=== PATIENT | female | born 1990 | race Caucasian/White ===

== ENCOUNTER → 2017-12-05 | Outpatient (CLI) | payer OTHER | LOC: FIMAGING 14:45 | PROVIDERS: ATTEND Hospitalist | DX: M79.661 Pain in right lower leg (principal); M79.662 Pain in left lower leg; M79.89 Other specified soft tissue disorders ==

== ENCOUNTER 2018-02-02 19:56 | Inpatient (IN) | payer OTHER ==
[2018-02-02] MEDS ORDERED: MISOPROSTOL 200 MCG TAB PO PRN (21:51)
[2018-02-02] MEDS ORDERED: OLIVE OIL 118 ML BTL MISC PRN (21:51)
[2018-02-02] MEDS ORDERED: LIDOCAINE 1% 300 MG/30 ML SDV SC PRN (21:51)
[2018-02-02] MEDS ORDERED: TERBUTALINE SULFATE 1 MG/ML VIAL IV PRN (21:51)
[2018-02-02] MEDS ORDERED: EPSOM SALT 454 GM TP PRN (21:51)
[2018-02-02] MEDS ORDERED: IBUPROFEN 600 MG TAB PO PRN (21:51)
[2018-02-02] MEDS ORDERED: AMMONIA AROMATIC 1 EACH AMP IH PRN (21:51)
[2018-02-02] MEDS ORDERED: OXYTOCIN/RINGERS LACTATE 1,000 ML IV PRN (21:51)
--- NOTE | 2018-02-02 22:39 | PDGENHP ---
History and Physical - Chief Complaint early labor - History of Present Illness 27 at 40w1d, here with contractions and "done being ". Has had ctxns for the past 3-4 days, not getting much sleep. Ctxns are intermittent, sometimes q 5 min, now q 15min on arrival. No LOF though lost mucus plug 2 d ago. No VB. Good FM. No ssx PIH except for edema which has actually improved over the past couple days. care at [facility], course c/b: hypothyroidism, hx genital HSV- on Valtrex for past 2 weeks, Rubella non- Immune. labs significant for: Rubella NON immune GBS neg Innatal neg Std panel neg A pos Ob hx: 01/2017 - ectopic txed with 2 doses MTX History Information - Allergies/Home Medication List Allergies/Adverse Reactions: No Known Allergies Allergy (Unverified 02/02/18 21:50) I have personally reviewed and updated: family history, medical history, social history, surgical history Past Medical History: genital HSV. asthma as a teen. 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 MGF- lung ca. M - DM1 , depression. F - EToH abuse. MAunt & MUnc - Parkinsons - Social History Smoking Status: Never smoked Alcohol Use: None Drug Use: None Review of Systems Review of Systems: ROS: 10pt was reviewed & negative except for what was stated in HPI & below Physical Exam Physical Exam: FHR - 130 reactive, Cat 1, mod variability, no decels toco - q 3-15 min 36.7 82 133/71 Constitutional: no apparent distress, appears nourished Eyes: PERRL, anicteric sclera, EOMI Ears, Nose, Mouth, Throat: moist mucous membranes, hearing normal, ears appear normal Cardiovascular: regular rate and rhythym, no murmur, rub, or gallop Respiratory: no respiratory distress, no rales or rhonchi, clear to auscultation Gastrointestinal: soft, non-tender abdomen (fundus firm and c/w term , NT when not miky) Genitourinary: no bladder fullness Skin: warm, normal color Musculoskeletal: full muscle strength Neurologic: AAOx3 Psychiatric: interacting appropriately Assessment & Plan Assessment: 27 at 40w1d with prodromal labor / rubella NON immune. Options discussed: go home and await spontaneous labor or stay and be induced. B/R/A of both options discussed. Pt and given time to discuss - mutually agreed to stay and induce. Discussed length of induction could be 3 hours to 3 days. Will proceed with Transcervical balloon catheter and pitocin, after confirming cephalic presentation with US. Sweetie Marcum MD, FACOG [facility]
[2018-02-02 23:02] LABS: PLATELET COUNT 221 10^3/uL (150-400)
[2018-02-02] MEDS ORDERED: LR 500 ML IV PRN (23:35)
--- NOTE | 2018-02-02 23:43 | OBPROG ---
Labor Progress Note Assessment/Plan: Assessment: 27 at 40w1d undergoing elective induction / maternal misery / lives far away from hospital Waqar transcervical balloon catheter in place - 60 ml uterine / 40 ml Vaginal placed Cephalic ANTHONY/ROT confirmed with US. Plan: Will start pitocin induction. B/R/A of IOL discussed again - pt wishes to proceed. Sweetie Marcum MD, FACOG [facility] 02/02/18 23:38 Subjective/Intrapartum Course: Pt ready to proceed with IOL. Feeling intermittent ctxns. 02/02/18 23:42 Objective: 02/02/18 22:42 SVE 1 / 50 / -3 Procedure - with sterile gloves - was able to digitally place Cook catheter through cervix and uterine balloon filled with 60 ml LR and vaginal balloon with 40 ml LR. Pt jani well. - SVE Dilation (cm): 1 Effacement (%): 50 Station: -3 Membranes: Intact - Contraction Pattern Assessment Current Contraction Pattern: Irregular - FHR Assessment Carlos FHR (bpm): 140 FHR Pattern Variability: Moderate FHR Category: 1 - Procedures Non-surgical Procedures: Other (Specify) (transcervical balloon catheter placement) - AP Antepartum Course: Uncomplicated course. Desires elective induction - started at 40 w1d after 3 d of prodromal labor. 02/02/18 23:45 Oxytocin Orders Assessment - Pre-Induction/Augmentation Assessment Gestational Age: 40 week(s) and 1 day(s) ICD10 Worksheet Patient Problems: Problems Problem Status Onset Encounter for elective induction of labor Acute Hypothyroidism Acute - ICD10 Problem Qualifiers (1) Encounter for elective induction of labor (2) Hypothyroidism Qualifiers: Hypothyroidism type: due to Iggy's thyroiditis Qualified Code(s): E03.8 - Other specified hypothyroidism; E06.3 - Autoimmune thyroiditis; E06.3 - Autoimmune thyroiditis; E06.3 - Autoimmune thyroiditis
[2018-02-02] MEDS ORDERED: OXYTOCIN/RINGERS LACTATE 500 ML IV SCH (23:45)
[2018-02-03] MEDS ORDERED: hydrOXYzine HCL 50 MG TAB PO ONE (01:00)
[2018-02-03] MEDS: LR 1,000 ML IV PRN ×2 (01:09→05:17)
--- NOTE | 2018-02-03 04:35 | OBPROG ---
Labor Progress Note Assessment/Plan: Assessment: 27 at 40w1d undergoing elective induction / maternal misery / lives far away from hospital Cook transcervical balloon catheter in place - 60 ml uterine / 40 ml Vaginal placed Cephalic ANTHONY/ROT confirmed with US. Plan: Will start pitocin induction. B/R/A of IOL discussed again - pt wishes to proceed. Sweetie Marcum MD, FACOG [facility] 02/02/18 23:38 A/P: 27 - undergoing IOL - Transcervical balloon in place even with tension - unable to palpate. Requests epidural -will have placed by Dr. Tiwari, Anesthesiology. Pt declined nitrous and IV narcotics. Rekha Marcum MD 02/03/18 04:31 Subjective/Intrapartum Course: Pt ready to proceed with IOL. Feeling intermittent ctxns. 02/02/18 23:42 Pt feeling sharp pain in lower abdomen, very frequently, feels like she doesn't get a break. Declines nitrous and IV narcotics, desires epidural. 02/03/18 04:34 Objective: 02/02/18 22:42 Patient ABO/Rh A POSITIVE 02/02/18 22:42 36.6 66 18 126/61 Gen - pleasant, mod distress with each contraction breathing through contractions. Unable to remove balloon catheter with tension, and unable to assess cervix around balloon catheter - SVE Membranes: Intact - Contraction Pattern Assessment Current Contraction Pattern: Regular, Irregular - FHR Assessment Carlos FHR (bpm): 130 FHR Pattern Variability: Moderate FHR Category: 1 - Procedures Non-surgical Procedures: Other (Specify) (transcervical balloon catheter placement) - AP Antepartum Course: Uncomplicated course. Desires elective induction - started at 40 w1d after 3 d of prodromal labor. 02/02/18 23:45 Oxytocin Orders Assessment - Pre-Induction/Augmentation Assessment Gestational Age: 40 week(s) and 1 day(s) ICD10 Worksheet Patient Problems: Problems Problem Status Onset Encounter for elective induction of labor Acute Hypothyroidism Acute - ICD10 Problem Qualifiers (1) Encounter for elective induction of labor (2) Hypothyroidism Qualifiers: Hypothyroidism type: due to Iggy's thyroiditis Qualified Code(s): E03.8 - Other specified hypothyroidism; E06.3 - Autoimmune thyroiditis; E06.3 - Autoimmune thyroiditis; E06.3 - Autoimmune thyroiditis
[2018-02-03] MEDS ORDERED: fentaNYL 100 MCG/2 ML INJ ONE (04:43)
[2018-02-03] MEDS ORDERED: BUPIVACAINE 0.25% 30 ML SDV ONE (04:44)
[2018-02-03] MEDS ORDERED: PHENYLEPHRINE HCL 100 MCG/ML SYR ONE (04:44)
[2018-02-03] MEDS ORDERED: fentaNYL 2MCG/ML/BUP 0.1% RTU 100 ML BAG EP ONE (04:44)
[2018-02-03] MEDS ORDERED: ONDANSETRON 4 MG/2 ML VIAL IVP PRN (05:22)
[2018-02-03] MEDS ORDERED: PHENYLEPHRINE HCL 100 MCG/ML SYR IVP PRN (05:22)
[2018-02-03] MEDS ORDERED: METOCLOPRAMIDE 10 MG/2 ML VIAL IVP PRN (05:22)
--- NOTE | 2018-02-03 05:24 | PREANESOB ---
Obstetric Pre-Anesthesia Info - General Info : 2 Para: 0 SHABNAM: 02/01/18 Gestational Age: 40 week(s) and 1 day(s) - Labor Status Cervical Dilation per last OB SVE: 1 Station per last OB SVE: -3 Anesthesia Allergies/Adverse Reactions: Allergy/AdvReac Type Severity Reaction Status Date / Time No Known Allergies Allergy Unverified 02/02/18 21:50 Home Medications: Medication Instructions Recorded Iron 325 mg PO DAILY 02/02/18 Levothyroxine 175 mcg PO DAILY 02/02/18 Dha 1 tab PO DAILY 02/02/18 Valtrex 500 mg PO DAILY 02/02/18 Visit Medications: Generic Name Dose Route Start Last Admin Trade Name Freq PRN Reason Stop Dose Admin Ammonia (Aromatic Spirit) 1 each 02/02/18 21:51 Ammonia Aromatic IH 02/12/18 21:50 ONCE PRN Fainting Lactated Ringer's 1,000 mls @ 0 mls/hr 02/02/18 21:51 02/03/18 05:17 Lr IV 02/03/18 21:50 1,000 mls PRN PRN Administration SEE PROTOCOL CONDITIONS Protocol Per Protocol Oxytocin/Lactated Ringer's 1,000 mls @ 150 mls/hr 02/02/18 21:51 Pitocin 20 Units/Lr (Premix) IV PRN PRN Post bleeding Lactated Ringer's 500 mls @ 500 mls/hr 02/02/18 23:35 Lr IV 02/03/18 23:35 PRN PRN Maternal Hypotension Oxytocin/Lactated Ringer's 500 mls @ 0 mls/hr 02/02/18 23:45 02/03/18 00:22 Pitocin 30 Units/Lr (Premix) IV 08/01/18 23:44 500 mls CONT VIVIANA Administration Protocol Per Protocol Ibuprofen 600 mg 02/02/18 21:51 Motrin PO ONCE PRN post , pain Levothyroxine Sodium 175 mcg 02/03/18 06:00 Synthroid PO 08/02/18 05:59 DAILY AT 6AM VIVIANA Lidocaine HCl 300 mg 02/02/18 21:51 Lidocaine Hcl 1% SC 08/01/18 21:50 ONCE PRN episiotomy Magnesium Sulfate 454 gm 02/02/18 21:51 Epsom Salt TP 08/01/18 21:50 Q1H PRN perineal discomfort Misoprostol 800 - 1,000 mcg 02/02/18 21:51 Cytotec PO 08/01/18 21:50 ONCE PRN Vaginal Atony/Bleeding Ward Oil 118 ml 02/02/18 21:51 Sweet Oil MISC 08/01/18 21:50 ONCE PRN perineal massage Terbutaline Sulfate 0.25 mg 02/02/18 21:51 Brethine IV 08/01/18 21:50 ONCE PRN Tachysystole Discontinued Medications Generic Name Dose Route Start Last Admin Trade Name Carolee PRN Reason Stop Dose Admin Bupivacaine HCl Confirm 02/03/18 04:44 Sensorcaine 0.25% Sdv Administered 02/03/18 04:45 Dose 30 ml .ROUTE .STK-MED ONE Fentanyl Confirm 02/03/18 04:43 Sublimaze Administered 02/03/18 04:44 Dose 100 mcg .ROUTE .STK-MED ONE Fentanyl/Bupivacaine HCl Confirm 02/03/18 04:44 Fentanyl/Bupivacaine/Ns 2 Mcg/Ml 0.1% (Premix Administered 02/03/18 04:45 Dose 100 ml EP .STK-MED ONE Hydroxyzine HCl 100 mg 02/03/18 01:00 02/03/18 01:09 Hydroxyzine Hcl PO 02/03/18 01:01 100 mg ONCE ONE Administration Phenylephrine HCl Confirm 02/03/18 04:44 Neosynephrine Administered 02/03/18 04:45 Dose 1,000 mcg .ROUTE .STK-MED ONE - Vital Signs Height/Weight (Nursing): Height 172.72 cm Weight 109.769 kg - Focused Exam Neck exam: decreased ROM Mallampati Score: Class 3 Mouth exam: normal dental/mouth exam Pulmonary: no respiratory distress Cardiovascular: regular rate and rhythym Labs: 02/02/18 22:42 Patient ABO/Rh A POSITIVE 02/02/18 22:42 - Plan Consent Signed and on Chart: Yes
[2018-02-03] MEDS ORDERED: fentaNYL 2MCG/ML/BUP 0.1% RTU 100 ML EP SCH (05:30)
[2018-02-03] MEDS ORDERED: LR 500 ML IV SCH (05:30)
[2018-02-03] MEDS ORDERED: AMMONIA AROMATIC 1 EACH AMP IH ONE (05:47)
[2018-02-03] MEDS ORDERED: OLIVE OIL 118 ML BTL ONE (05:47)
[2018-02-03] MEDS ORDERED: LIDOCAINE 1% 300 MG/30 ML SDV ONE (05:47)
[2018-02-03] MEDS ORDERED: MISOPROSTOL 200 MCG TAB ONE (05:48)
[2018-02-03] MEDS ORDERED: OXYTOCIN 10 UNIT/ML VIAL ONE ×2 (05:48→23:46)
--- NOTE | 2018-02-03 08:30 | OBPROG ---
Labor Progress Note Assessment/Plan: Assessment: IUP at 40w2d IOL - on pit, cook cath removed, and now AROM/mec, - rub NI HSV - no outbreaks GBS - Plan: will cont pit, mec noted, will place IUPC prn if no progress 02/03/18 08:22 02/03/18 08:31 Subjective/Intrapartum Course: Pt ready to proceed with IOL. Feeling intermittent ctxns. 02/02/18 23:42 Pt feeling sharp pain in lower abdomen, very frequently, feels like she doesn't get a break. Declines nitrous and IV narcotics, desires epidural. 02/03/18 04:34 02/03/18 08:30 Pt was resting after SAÚL, comf now. I rec removing cook and assessing cx and AROM - pt agreeable. informed pt of mec with AROM, cx Objective: 02/02/18 22:42 Patient ABO/Rh A POSITIVE 02/02/18 22:42 - SVE Dilation (cm): 5 Effacement (%): 80 Station: -2 Membranes: AROM, Intact Amniotic Fluid Color: Meconium Stained - Contraction Pattern Assessment Current Contraction Pattern: Regular, Irregular (q 2-4 min on 18 mu/min pit) - FHR Assessment Carlos FHR (bpm): 130 FHR Pattern Variability: Moderate FHR Category: 1 - Procedures Non-surgical Procedures: Amniotomy (with mec noted), Other (Specify) ( transcervical balloon catheter placement) - AP Antepartum Course: Uncomplicated course. Desires elective induction - started at 40 w1d after 3 d of prodromal labor. 02/02/18 23:45 Oxytocin Orders Assessment - Pre-Induction/Augmentation Assessment Gestational Age: 40 week(s) and 1 day(s) ICD10 Worksheet Patient Problems: Problems Problem Status Onset Encounter for elective induction of labor Acute Hypothyroidism Acute
--- NOTE | 2018-02-03 11:52 | OBPROG ---
Labor Progress Note Assessment/Plan: Assessment: IUP at 40w2d cx now , with lack of change - IUPC placed rub NI HSV - no outbreaks GBS - Plan: will cont pit, mec noted 02/03/18 08:22 02/03/18 08:31 02/03/18 11:48 Subjective/Intrapartum Course: Pt ready to proceed with IOL. Feeling intermittent ctxns. 02/02/18 23:42 Pt feeling sharp pain in lower abdomen, very frequently, feels like she doesn't get a break. Declines nitrous and IV narcotics, desires epidural. 02/03/18 04:34 02/03/18 08:30 Pt was resting after SAÚL, comf now. I rec removing cook and assessing cx and AROM - pt agreeable. informed pt of mec with AROM, cx -2 02/03/18 11:50 Pt doing ok - comf with SAÚL. knows cx hasn't changed - rec IUPC and pt agrees. placed without probs. pit on , initial ctxns adeq -- Objective: 02/02/18 22:42 Patient ABO/Rh A POSITIVE 02/02/18 22:42 - SVE Dilation (cm): 5 Effacement (%): 90 Station: -2 Membranes: AROM, Intact Amniotic Fluid Color: Meconium Stained - Contraction Pattern Assessment Current Contraction Pattern: Regular (q 2 min, initial ctxns with good intensity by IUPC), Irregular (q 2-4 min on 18 mu/min pit) - FHR Assessment Carlos FHR (bpm): 130 FHR Pattern Variability: Moderate FHR Category: 1 - Procedures Non-surgical Procedures: Amniotomy (with mec noted), Other (Specify) ( transcervical balloon catheter placement) - AP Antepartum Course: Uncomplicated course. Desires elective induction - started at 40 w1d after 3 d of prodromal labor. 02/02/18 23:45 Oxytocin Orders Assessment - Pre-Induction/Augmentation Assessment Gestational Age: 40 week(s) and 1 day(s) ICD10 Worksheet Patient Problems: Problems Problem Status Onset Encounter for elective induction of labor Acute Hypothyroidism Acute
[2018-02-03] MEDS: LEVOTHYROXINE 175 MCG TAB PO SCH (12:24)
--- NOTE | 2018-02-03 18:12 | OBPROG ---
Labor Progress Note Assessment/Plan: Assessment: IUP at 40w2d cx now /-1, variable adequacy with ctxns - for spurts very dysfuctional, then very adequate great pattern for 45 min rub NI HSV - no outbreaks GBS - Plan: will cont pit, cx cont to make change, mec 02/03/18 08:22 02/03/18 08:31 02/03/18 11:48 02/03/18 18:09 Subjective/Intrapartum Course: Pt ready to proceed with IOL. Feeling intermittent ctxns. 02/02/18 23:42 Pt feeling sharp pain in lower abdomen, very frequently, feels like she doesn't get a break. Declines nitrous and IV narcotics, desires epidural. 02/03/18 04:34 02/03/18 08:30 Pt was resting after SAÚL, comf now. I rec removing cook and assessing cx and AROM - pt agreeable. informed pt of mec with AROM, cx 80/-2 02/03/18 11:50 Pt doing ok - comf with SAÚL. knows cx hasn't changed - rec IUPC and pt agrees. placed without probs. pit on , initial ctxns adeq --90/-2 02/03/18 18:11 pt ok but having right sided pain - just pushed button, aware of pressure, disc variable ctxn adequacy. 100/-1 on pit Objective: 02/02/18 22:42 Patient ABO/Rh A POSITIVE 02/02/18 22:42 - SVE Dilation (cm): 8 Effacement (%): 100 Station: -1 Membranes: AROM, Intact Amniotic Fluid Color: Meconium Stained - Contraction Pattern Assessment Current Contraction Pattern: Regular (q 2 min, initial ctxns with good intensity by IUPC), Irregular (variable, most are adeq strength with MVUs 140- 270. ?coupling) - FHR Assessment Carlos FHR (bpm): 130 FHR Pattern Variability: Moderate FHR Category: 1 - Procedures Non-surgical Procedures: Amniotomy (with mec noted), Other (Specify) ( transcervical balloon catheter placement) - AP Antepartum Course: Uncomplicated course. Desires elective induction - started at 40 w1d after 3 d of prodromal labor. 02/02/18 23:45 Oxytocin Orders Assessment - Pre-Induction/Augmentation Assessment Gestational Age: 40 week(s) and 1 day(s) ICD10 Worksheet Patient Problems: Problems Problem Status Onset Encounter for elective induction of labor Acute Hypothyroidism Acute
[2018-02-03] MEDS ORDERED: ACETAMINOPHEN 500 MG TAB PO ONE (22:30)
--- NOTE | 2018-02-03 23:03 | OBPROG ---
Labor Progress Note Assessment/Plan: Assessment: IUP at 40w2d complete since about 8:30, ineffective pushing and labored down approx 1 hour rub NI HSV - no outbreaks GBS - Plan: cont pushing, mec 02/03/18 08:22 02/03/18 08:31 02/03/18 11:48 02/03/18 18:09 02/03/18 22:59 Subjective/Intrapartum Course: Pt ready to proceed with IOL. Feeling intermittent ctxns. 02/02/18 23:42 Pt feeling sharp pain in lower abdomen, very frequently, feels like she doesn't get a break. Declines nitrous and IV narcotics, desires epidural. 02/03/18 04:34 02/03/18 08:30 Pt was resting after SAÚL, comf now. I rec removing cook and assessing cx and AROM - pt agreeable. informed pt of mec with AROM, cx 5/80/-2 02/03/18 11:50 Pt doing ok - comf with SAÚL. knows cx hasn't changed - rec IUPC and pt agrees. placed without probs. pit on , initial ctxns adeq --5/90/-2 02/03/18 18:11 pt ok but having right sided pain - just pushed button, aware of pressure, disc variable ctxn adequacy. 8/100/-1 on pit 02/03/18 23:03 Has had possible OP position and seemed like baby rotated with change of rectal pressure. Has been pushing approx 11/2 hours, more effective recently. Objective: 02/02/18 22:42 Patient ABO/Rh A POSITIVE 02/02/18 22:42 - SVE Dilation (cm): 10 Effacement (%): 100 Station: +2 Membranes: AROM, Intact Amniotic Fluid Color: Meconium Stained Dilation Complete Date: 02/03/18 - Contraction Pattern Assessment Current Contraction Pattern: Regular (q 2 min, initial ctxns with good intensity by IUPC), Irregular (variable, most are adeq strength with MVUs 140- 270. ?coupling) - FHR Assessment Carlos FHR (bpm): 140 FHR Pattern Variability: Moderate FHR Category: 1 (spotty monitoring while pushing, but between still accels seen) - Procedures Non-surgical Procedures: Amniotomy (with mec noted), Other (Specify) ( transcervical balloon catheter placement) - AP Antepartum Course: Uncomplicated course. Desires elective induction - started at 40 w1d after 3 d of prodromal labor. 02/02/18 23:45 Oxytocin Orders Assessment - Pre-Induction/Augmentation Assessment Gestational Age: 40 week(s) and 1 day(s) ICD10 Worksheet Patient Problems: Problems Problem Status Onset Encounter for elective induction of labor Acute Hypothyroidism Acute
--- NOTE | 2018-02-04 00:27 | OBDEL ---
Info Type: Vaginal Presentation at Delivery: Vertex L&D Analgesia/Anesthesia Type: Epidural GBS+: No Intrapartum Medications: Generic Name Dose Route Start Last Admin Trade Name Frelata PRN Reason Stop Dose Admin Oxytocin/Lactated Ringer's 500 mls @ 0 mls/hr 02/02/18 23:45 02/03/18 00:22 Pitocin 30 Units/Lr (Premix) IV 08/01/18 23:44 500 mls CONT VIVIANA Administration Protocol Per Protocol Fentanyl/Bupivacaine HCl 100 mls @ 0 mls/hr 02/03/18 05:30 02/03/18 05:28 Fentanyl/Bupivacaine/Ns 2 Mcg/Ml 0.1% (Premix EP 02/13/18 05:29 100 mls CONT VIVIANA Administration Protocol As Directed Levothyroxine Sodium 175 mcg 02/03/18 06:00 02/03/18 12:24 Synthroid PO 08/02/18 05:59 175 mcg DAILY AT 6AM VIVIANA Administration Lidocaine HCl 300 mg 02/02/18 21:51 02/03/18 23:48 Lidocaine Hcl 1% SC 08/01/18 21:50 300 mg ONCE PRN Administration episiotomy Discontinued Medications Generic Name Dose Route Start Last Admin Trade Name Carolee PRN Reason Stop Dose Admin Acetaminophen 1,000 mg 02/03/18 22:30 02/03/18 22:36 Tylenol PO 02/03/18 22:31 1,000 mg ONCE ONE Administration Hydroxyzine HCl 100 mg 02/03/18 01:00 02/03/18 01:09 Hydroxyzine Hcl PO 02/03/18 01:01 100 mg ONCE ONE Administration Lactated Ringer's 1,000 mls @ 0 mls/hr 02/02/18 21:51 02/03/18 05:17 Lr IV 02/03/18 21:50 1,000 mls PRN PRN Administration SEE PROTOCOL CONDITIONS Protocol Per Protocol - Hospital Course Intrapartum: Pt ready to proceed with IOL. Feeling intermittent ctxns. 02/02/18 23:42 Pt feeling sharp pain in lower abdomen, very frequently, feels like she doesn't get a break. Declines nitrous and IV narcotics, desires epidural. 02/03/18 04:34 02/03/18 08:30 Pt was resting after SAÚL, comf now. I rec removing cook and assessing cx and AROM - pt agreeable. informed pt of mec with AROM, cx /-2 02/03/18 11:50 Pt doing ok - comf with SAÚL. knows cx hasn't changed - rec IUPC and pt agrees. placed without probs. pit on , initial ctxns adeq --/-2 02/03/18 18:11 pt ok but having right sided pain - just pushed button, aware of pressure, disc variable ctxn adequacy. 8100/-1 on pit 02/03/18 23:03 Has had possible OP position and seemed like baby rotated with change of rectal pressure. Has been pushing approx 11/2 hours, more effective recently. Vaginal Delivery - Delivery Provider Delivery Physician/CNM: Lupe Ward - Labor and Delivery Onset of Contractions Date: 02/03/18 Onset of Contractions Time: 12:00 Onset of Contractions Type: Induced Rupture of Membranes Date: 02/03/18 Rupture of Membranes Time: 08:16 Rupture of Membranes Type: Artificial Amniotic Fluid Color: Meconium Stained Dilation Complete Date: 02/03/18 Dilation Complete Time: 20:36 Placenta Delivery Date: 02/03/18 Placenta Delivery Time: 23:40 Total Hours of Labor: 11 Non-surgical Procedures: Amniotomy (with mec noted), Other (Specify) ( transcervical balloon catheter placement) Laceration: 2nd Degree, Other (Specify) (extended up posterior vag wall) Repair: 3-0, Vicryl Vaginal Sponge Count Correct: Yes Vaginal Needle Count Correct: Yes Vaginal Sweep Performed: Yes EBL: 450 Delivery Events: None - Medications Labor Augmentation/Induction Methods Used: Pitocin, Other (Specify) (cook catheter) Labor Augmentation/Induction Indication: Other (Specify) (prodromal labor) Data SHABNAM: 02/01/18 Gestational Age: 40 week(s) and 3 day(s) Carlos Delivery Date: 02/03/18 Delivery Time: 23:32 Sex of : Female (Ayleen) Score (1 Min): 8 Score (5 Min): 9 ICD10 Worksheet Patient Problems: Problems Problem Status Onset Encounter for elective induction of labor Acute Hypothyroidism Acute (spontaneous vaginal delivery) Acute - ICD10 Problem Qualifiers (1) (spontaneous vaginal delivery)
[2018-02-04] MEDS: ACETAMINOPHEN 325 MG TAB PO SCH ×4 (01:05→20:35)
[2018-02-04] MEDS: IBUPROFEN 600 MG TAB PO SCH ×3 (06:43→20:35)
[2018-02-04] MEDS: LEVOTHYROXINE 175 MCG TAB PO SCH (06:44)
[2018-02-04] MEDS ORDERED: HYDROCORTISONE 0.5% CREAM TP PRN (11:19)
[2018-02-04] MEDS ORDERED: MEASLES,MUMPS&RUBELLA VACC/PF 0.5 ML VIAL SC ONE (12:27)
--- NOTE | 2018-02-04 12:27 | OBPP ---
Progress Note Assessment/Plan: Assessment: PPD1 s/p . Hct 32 - Iron supps. Colace BID. Likely home tomorrow. A pos Rubella NON immune - needs MMR (ordered today) Hypothyroid - Cont levo 175mcg JM Subjective/ Course: 02/04/18 12:25 Doing well - They all got a few hours of good sleep last night. Worried about some issues w baby's O2 sat and temp fluctuations. BF going well. Pain controlled. Objective: 02/04/18 05:50 Patient ABO/Rh A POSITIVE 02/02/18 22:42 Temp Pulse Resp BP Pulse Ox 36.3 C 70 18 108/67 96 02/04/18 09:45 02/04/18 09:45 02/04/18 09:45 02/04/18 09:45 02/04/18 09:45 Uterine Position/Fundal Height: At Umbilicus Uterine Tone: Firm
[2018-02-04] MEDS ORDERED: LEVOTHYROXINE 175 MCG TAB PO SCH (12:30)
[2018-02-04] MEDS ORDERED: IRON POLYSAC/IRON HEME 28 MG TAB PO SCH (12:30)
[2018-02-04] MEDS: DOCUSATE SODIUM 100 MG CAP PO SCH ×2 (14:40→20:35)
[2018-02-04] MEDS: FERROUS SULFATE 140 MG TAB.ER PO SCH (14:41)
--- NOTE | 2018-02-04 21:36 | POSTANESTH ---
Post Anesthetic Evaluation Cardiovascular Status: Normal, Stable Respiratory Status: Normal, Stable Level of Consciousness/Mental Status: Can Participate in Eval Pain Control: Adequate, Prn Tx Ordered Nausea/Vomiting Control: Adequate, Prn Tx Ordered Complications Possibly Related to Anesthesia: None Noted (Pt doing well. Motor and sensation intact s/p epidural removal. No JOHNSON or back pain. Pt satisfied with epidural.)
[2018-02-05] MEDS: ACETAMINOPHEN 325 MG TAB PO SCH ×3 (00:45→17:34)
[2018-02-05] MEDS: IBUPROFEN 600 MG TAB PO SCH ×2 (03:09→10:26)
[2018-02-05] MEDS: LEVOTHYROXINE 175 MCG TAB PO SCH (06:15)
[2018-02-05 10:05] VITALS: BP 112/68
--- NOTE | 2018-02-05 10:20 | OBPP ---
Progress Note Assessment/Plan: Assessment: 27 yo ppd# 2 s/p breast feeding rubella non immune - mmr vaccine flu vaccine 02/05/18 10:17 Subjective/ Course: 02/04/18 12:25 Doing well - They all got a few hours of good sleep last night. Worried about some issues w baby's O2 sat and temp fluctuations. BF going well. Pain controlled. 02/05/18 10:18 patient is doing well. pain is well controlled. normal lochia. denies headache and changes in vision. baby cluster fed last night but she was able to sleep for a few hours this morning. is slightly anxious but feels ok and has good support. appears very supportive. ready to go home. discussed follow up. Objective: 02/04/18 05:50 Patient ABO/Rh A POSITIVE 02/02/18 22:42 Temp Pulse Resp BP Pulse Ox 36.3 C 79 18 112/68 97 02/05/18 08:00 02/05/18 08:00 02/05/18 08:00 02/05/18 08:00 02/05/18 08:00 Physical Exam - Physical Exam Neck: non-tender, full range of motion Respiratory: chest non-tender, lungs clear, normal breath sounds Cardiac/Chest: normal peripheral pulses, regular rate, rhythm Abdomen: normal bowel sounds, non-tender, other (fundus firm and non tender) Extremities: normal range of motion, non-tender, normal inspection, normal capillary refill Skin: normal color, warm/dry Neuro/Psych: no motor/sensory deficits, alert, normal mood/affect, oriented x 3
--- NOTE | 2018-02-05 10:22 | OBGCSDC ---
General Delivery Information - General Info : 2 Para: 0 Abortions: 1 Type: Vaginal L&D Analgesia/Anesthesia Type: Epidural, Local Admission Date: 02/02/18 Labs: Patient ABO/Rh A POSITIVE 02/02/18 22:42 Hct 32.4 % (38.0-47.0) L 02/04/18 05:50 - Hospital Course Antepartum: Uncomplicated course. Desires elective induction - started at 40 w1d after 3 d of prodromal labor. 02/02/18 23:45 Intrapartum: Pt ready to proceed with IOL. Feeling intermittent ctxns. 02/02/18 23:42 Pt feeling sharp pain in lower abdomen, very frequently, feels like she doesn't get a break. Declines nitrous and IV narcotics, desires epidural. 02/03/18 04:34 02/03/18 08:30 Pt was resting after SAÚL, comf now. I rec removing cook and assessing cx and AROM - pt agreeable. informed pt of mec with AROM, cx 5/80/-2 02/03/18 11:50 Pt doing ok - comf with SAÚL. knows cx hasn't changed - rec IUPC and pt agrees. placed without probs. pit on , initial ctxns adeq --5/90/-2 02/03/18 18:11 pt ok but having right sided pain - just pushed button, aware of pressure, disc variable ctxn adequacy. 8/100/-1 on pit 02/03/18 23:03 Has had possible OP position and seemed like baby rotated with change of rectal pressure. Has been pushing approx 11/2 hours, more effective recently. : 02/04/18 12:25 Doing well - They all got a few hours of good sleep last night. Worried about some issues w baby's O2 sat and temp fluctuations. BF going well. Pain controlled. 02/05/18 10:18 patient is doing well. pain is well controlled. normal lochia. denies headache and changes in vision. baby cluster fed last night but she was able to sleep for a few hours this morning. is slightly anxious but feels ok and has good support. appears very supportive. ready to go home. discussed follow up. Vaginal - Delivery Provider Delivery Physician/CNM: Lupe Ward - Diagnosis Labor: Induced Rupture of Membranes Type: Artificial Amniotic Fluid Color: Meconium Stained Laceration: 2nd Degree, Other (Specify) (extended up posterior vag wall) Repair: 3-0, Vicryl Delivery Events: None - Procedures Non-surgical Procedures: Amniotomy (with mec noted), Other (Specify) ( transcervical balloon catheter placement) - Delivery Non-surgical Procedures: Amniotomy (with mec noted), Other (Specify) ( transcervical balloon catheter placement) EBL: 450 Data SHABNAM: 02/01/18 Gestational Age: 40 week(s) and 4 day(s) Carlos Delivery Date: 02/03/18 Delivery Time: 23:32 Sex of : Female (Ayleen) [place] Weight (gm): 3222 g Score (1 Min): 8 Score (5 Min): 9 Discharge Information - Discharge Information Instruction/Follow Up: Two Weeks (post wellness center), Six Weeks (post visit)
[2018-02-05] MEDS: FERROUS SULFATE 140 MG TAB.ER PO SCH (10:26)
[2018-02-05] MEDS: DOCUSATE SODIUM 100 MG CAP PO SCH (10:26)
== END 2018-02-05 12:55 | disposition home or self-care (01) | DRG 807 ==
LOC: FLD 19:56 → FOB 02-04 02:48
PROVIDERS: ADMIT Hospitalist; ATTEND Hospitalist
PROC: 3E033VJ Introduction of Other Hormone into Peripheral Vein, Percutaneous Approach (ICD-10-PCS; 2018-02-02)
PROC: 0U7C7ZZ Dilation of Cervix, Via Natural or Artificial Opening (ICD-10-PCS; 2018-02-02)
PROC: 0KQM0ZZ Repair Perineum Muscle, Open Approach (ICD-10-PCS; principal; 2018-02-03)
PROC: 10E0XZZ Delivery of Products of Conception, External Approach (ICD-10-PCS; principal; 2018-02-03)
PROC: 10907ZC Drainage of Amniotic Fluid, Therapeutic from Products of Conception, Via Natural or Artificial Opening (ICD-10-PCS; 2018-02-03)
PROC: 10H07YZ Insertion of Other Device into Products of Conception, Via Natural or Artificial Opening (ICD-10-PCS; 2018-02-03)
DX: O63.0 Prolonged first stage (of labor) (principal); O77.0 Labor and delivery complicated by meconium in amniotic fluid; O70.1 Second degree perineal laceration during delivery; O99.284 Endocrine, nutritional and metabolic diseases complicating childbirth; Z3A.40 40 weeks gestation of pregnancy; Z37.0 Single live birth; Z23 Encounter for immunization
CPT/HCPCS: G0008; J2370; J2590; J3010